=== PATIENT | male | born 1985 | race Two or more races ===

== ENCOUNTER 2017-09-26 15:40 | Emergency (ER) | payer MEDICAID ==
[~2017-09-26] VITALS: Ht 162.6 cm; Wt 64.0 kg
[2017-09-26 17:26] LABS: CLARITY URINE CLEAR (CLEAR); COLOR URINE YELLOW (YELLOW); KETONES URINE TRACE (NEGATIVE); LEUKOCYTE ESTERASE URINE NEGATIVE (NEGATIVE); NITRITE URINE NEGATIVE (NEGATIVE); OCCULT BLOOD URINE 3+ (NEGATIVE); PH URINE 6.5 (4.5-8.0); PROTEIN URINE NEGATIVE (NEGATIVE)
[2017-09-26] MEDS ORDERED: ONDANSETRON HCL 4MG/2ML VIAL IV STA (18:18)
[2017-09-26] MEDS ORDERED: MORPHINE SULFATE 4 MG/ML CPJ (NOT FOR IM USE) IV STA (18:18)
[2017-09-26] MEDS ORDERED: SODIUM CHLORIDE 0.9% 1,000 ML IV ONE (18:18)
[2017-09-26 19:17] LABS: BASOPHILS % 0.7 % (0.0-2.0); EOSINOPHILS % 0.2 % (0.0-5.0); HEMATOCRIT. 43.1 % (42.0-52.0); HEMOGLOBIN. 14.6 g/dL (14.0-18.0); LYMPHOCYTES % 14.5 % (20.0-50.0); MEAN CORPUSCULAR HEMOGLOBIN 25.7 pg (28.0-32.0); MEAN CORPUSCULAR VOLUME 75.7 fL (80.0-94.0); MONOCYTES % 7.9 % (2.0-8.0); NEUTROPHILS % 76.7 % (40.0-76.0); PLATELET 186 x1000/uL (130-400); RED BLOOD CELL COUNT 5.69 mill/uL (4.7-6.1); RED CELL DISTRIBUTION WIDTH 14.3 % (11.6-14.6)
[2017-09-26 19:22] LABS: CHLORIDE 100 mEq/L (98-107)
[2017-09-26 19:23] LABS: INR 1.1; PROTHROMBIN TIME 11.4 sec (9.4-11.6)
[2017-09-26 19:31] LABS: CARBON DIOXIDE 27 mEq/L (21-32)
[2017-09-26] MEDS ORDERED: KETOROLAC 30MG/ML VIAL IV STA (20:27)
[2017-09-26 21:30] VITALS: BP 118/72
== END 2017-09-26 22:50 | disposition home or self-care (01) ==
LOC: ER 16:02
DX: A08.4 Viral intestinal infection, unspecified (principal)
CPT/HCPCS: 36415; 80053; 81001; 83690; 85025; 85610; 96361; 96374; 96375; 99284; J1885; J2270; J2405; J7030; Z7610

== ENCOUNTER 2017-09-27 21:32 | Emergency (ER) | payer MEDICAID, OTHER ==
[~2017-09-27] VITALS: Ht 177.8 cm; Wt 74.0 kg
[2017-09-28] MEDS ORDERED: ONDANSETRON HCL 4MG/2ML VIAL IV STA (00:58)
[2017-09-28] MEDS ORDERED: SODIUM CHLORIDE 0.9% 1,000 ML IV ONE (00:58)
[2017-09-28] MEDS ORDERED: KETOROLAC 30MG/ML VIAL IV ONE (01:15)
[2017-09-28 01:52] LABS: BASOPHILS % 0.9 % (0.0-2.0); EOSINOPHILS % 0.4 % (0.0-5.0); HEMATOCRIT. 39.2 % (42.0-52.0); HEMOGLOBIN. 13.3 g/dL (14.0-18.0); MEAN CORPUSCULAR HEMOGLOBIN 25.7 pg (28.0-32.0); MEAN CORPUSCULAR VOLUME 75.6 fL (80.0-94.0); MEAN PLATELET VOLUME 7.5 fl (7.4-10.4); NEUTROPHILS % 62.7 % (40.0-76.0); PLATELET 197 x1000/uL (130-400); RED BLOOD CELL COUNT 5.18 mill/uL (4.7-6.1); RED CELL DISTRIBUTION WIDTH 14.4 % (11.6-14.6)
[2017-09-28 01:56] LABS: CHLORIDE 105 mEq/L (98-107)
[2017-09-28 02:05] LABS: CARBON DIOXIDE 25 mEq/L (21-32)
[2017-09-28 03:04] LABS: CLARITY URINE CLEAR (CLEAR); COLOR URINE YELLOW (YELLOW); KETONES URINE NEGATIVE (NEGATIVE); LEUKOCYTE ESTERASE URINE NEGATIVE (NEGATIVE); NITRITE URINE NEGATIVE (NEGATIVE); OCCULT BLOOD URINE 1+ (NEGATIVE); PROTEIN URINE NEGATIVE (NEGATIVE); SPECIFIC GRAVITY URINE 1.005 (1.005-1.030); UROBILINOGEN URINE 0.2 E.U./dL (0.2-1.0)
[2017-09-28 05:45] VITALS: BP 119/72
[2017-09-29 13:19] LABS: *AMPHETAMINES SCREEN URINE NEGATIVE (NEGATIVE); *BARBITURATES SCREEN URINE NEGATIVE (NEGATIVE); *BENZODIAZEPINES SCREEN URINE NEGATIVE (NEGATIVE); *COCAINE SCREEN URINE NEGATIVE (NEGATIVE); CANNABINOID URINE SCREEN NEGATIVE (NEGATIVE); METHADONE URINE SCREEN NEGATIVE (NEGATIVE); OPIATES URINE SCREEN NEGATIVE (NEGATIVE); PHENCYCLIDINE URINE SCREEN NEGATIVE (NEGATIVE)
== END 2017-09-28 06:04 | disposition home or self-care (01) ==
LOC: ER 21:57
DX: R51 Headache (principal); R11.2 Nausea with vomiting, unspecified; M54.2 Cervicalgia
CPT/HCPCS: 36415; 70450; 71010; 80053; 80305; 81001; 85025; 96361; 96374; 96375; 99285; J1885; J2405; J7030; Z7610